=== PATIENT | female | born 1970 ===

== ENCOUNTER 2018-09-19 17:22 | Observation (INO) | payer MEDICAID ==
[2018-09-19] MEDS ORDERED: Sodium Chloride 0.9% 1,000 ML IV ONE (19:59)
[2018-09-19] MEDS ORDERED: Sodium Chloride 0.9% 1,000 ML ONE (20:10)
[2018-09-19 20:23] LABS: BASO % 0.2 % (0.0-2.0); EOS # 0.1 K/uL (0.0-0.7); EOS % 0.6 % (0.0-4.0); HEMOGLOBIN 10.1 g/dL (11.0-16.0); LYMPH # 1.7 K/uL (1.0-4.3); LYMPH % 11.7 % (20.0-40.0); MEAN CELL VOLUME 75.2 fL (81.0-99.0); MEAN CORPUSCULAR HGB CONC 31.9 g/dL (33.0-37.0); MEAN PLATELET VOLUME 8.5 fL (7.2-11.7); MONO # 0.4 K/uL (0.0-0.8); MONO % 2.6 % (0.0-10.0); NEUT # 12.3 K/uL (1.8-7.0); NEUT % 84.9 % (50.0-75.0); RBC 4.19 Mil/uL (3.80-5.20); RED CELL DISTRIBUTION WIDTH 17.6 % (11.5-14.5); WHITE BLOOD COUNT 14.4 K/uL (4.8-10.8)
[2018-09-19 20:27] LABS: SQUAMOUS EPITHIAL 8 /hpf (0-5); URINE BACTERIA RARE (<OCC); URINE BILIRUBIN NEGATIVE (NEGATIVE); URINE BLOOD 3+ (NEGATIVE); URINE CLARITY Hazy (Clear); URINE COLOR Yellow (YELLOW); URINE GLUCOSE (UA) NORMAL (Normal); URINE LEUKOCYTE ESTERASE NEG Leu/uL (Negative); URINE PROTEIN 1+ mg/dL (NEGATIVE); URINE UROBILINOGEN NORMAL mg/dL (0.2-1.0)
[2018-09-19 20:29] LABS: HCG,QUALITATIVE URINE NEGATIVE (NEGATIVE)
[2018-09-19 20:34] LABS: ALB/GLOB RATIO 1.3 (1.0-2.1); ALBUMIN 4.3 g/dL (3.5-5.0); ALT/SGPT 18 U/L (9-52); AST/SGOT 20 U/L (14-36); BLOOD UREA NITROGEN 9 mg/dL (7-17); CALCIUM 8.8 mg/dl (8.6-10.4); GFR NON-AFRICAN AMERICAN > 60; LIPASE 94 U/L (23-300)
[2018-09-19 20:42] LABS: B-TYPE NATRIURETIC PEPTIDE 54.5 pg/mL (0-450)
[2018-09-19] MEDS ORDERED: Iodixanol 320 MG/ML 100 ML BOTTLE IV ONE (21:13)
--- NOTE | 2018-09-19 21:33 | C.PDOC ---
History Of Present Illness 48-year-old female presents to the ED for evaluation of left-sided abdominal pain which began two days ago. Patient describes her pain as dull, aching and boring. Patient denies fever, chills, history of diverticulitis or renal colic. Time Seen by Provider: 09/19/18 19:50 Chief Complaint (Nursing): Abdominal Pain History Per: Patient History/Exam Limitations: no limitations Onset/Duration Of Symptoms: Hrs Current Symptoms Are (Timing): Still Present Location Of Pain/Discomfort: Other (left-sided) Quality Of Discomfort: Dull, Aching, "Pain" Associated Symptoms: denies: Fever, Chills Additional History Per: Patient Abnormal Vaginal Bleeding: No Past Medical History Reviewed: Historical Data, Nursing Documentation, Vital Signs Vital Signs: Last Vital Signs Temp 97.8 F 09/19/18 19:08 Pulse 78 09/19/18 19:08 Resp 19 09/19/18 19:08 BP 140/91 H 09/19/18 19:08 Pulse Ox 100 09/19/18 19:08 Primary Care Provider: FAMILY PROVIDER,NO - Medical History PMH: No Chronic Diseases Surgical History: No Surg Hx Family History: States: Unknown Family Hx - Social History Hx Alcohol Use: No Hx Substance Use: No - Immunization History Hx Tetanus Toxoid Vaccination: No Hx Influenza Vaccination: No Hx Pneumococcal Vaccination: No Review Of Systems Constitutional: Negative for: Fever, Chills Gastrointestinal: Positive for: Abdominal Pain (left-sided ) Physical Exam - Physical Exam Appears: Non-toxic, No Acute Distress, Other (obese female, appears older than stated age ) Skin: Normal Color, Warm, Dry Head: Atraumatic, Normacephalic Oral Mucosa: Moist Neck: Supple Chest: Symmetrical, No Deformity, No Tenderness Cardiovascular: Rhythm Regular, No Murmur Respiratory: Normal Breath Sounds, No Rales, No Rhonchi, No Wheezing Gastrointestinal/Abdominal: Soft, Tenderness (left lateral abdomen ), No Guarding, No Rebound Back: No CVA Tenderness Extremity: Normal ROM, Capillary Refill (less than 2 seconds ) Neurological/Psych: Normal Speech, Normal Cognition ED Course And Treatment - Laboratory Results Result Diagrams: 09/19/18 20:15 09/19/18 20:15 Lab Results: Troponin I < 0.0120 ng/mL (0.00-0.120) 09/19/18 20:15 NT-Pro-B Natriuret Pep 54.5 pg/mL (0-450) 09/19/18 20:15 Total Bilirubin 0.2 mg/dL (0.2-1.3) 09/19/18 20:15 AST 20 U/L (14-36) 09/19/18 20:15 ALT 18 U/L (9-52) 09/19/18 20:15 Alkaline Phosphatase 86 U/L (38-126) 09/19/18 20:15 Total Protein 7.7 g/dL (6.3-8.3) 09/19/18 20:15 Albumin 4.3 g/dL (3.5-5.0) 09/19/18 20:15 Globulin 3.4 gm/dL (2.2-3.9) 09/19/18 20:15 Albumin/Globulin Ratio 1.3 (1.0-2.1) 09/19/18 20:15 Lipase 94 U/L (23-300) 09/19/18 20:15 Urine Color Yellow (YELLOW) 09/19/18 20:15 Urine Clarity Hazy (Clear) 09/19/18 20:15 Urine pH 5.0 (5.0-8.0) 09/19/18 20:15 Ur Specific [place] 1.020 (1.003-1.030) 09/19/18 20:15 Urine Protein 1+ mg/dL (NEGATIVE) H 09/19/18 20:15 Urine Glucose (UA) Normal mg/dL (Normal) 09/19/18 20:15 Urine Ketones Trace mg/dL (NEGATIVE) 09/19/18 20:15 Urine Blood 3+ (NEGATIVE) H 09/19/18 20:15 Urine Nitrate Negative (NEGATIVE) 09/19/18 20:15 Urine Bilirubin Negative (NEGATIVE) 09/19/18 20:15 Urine Urobilinogen Normal mg/dL (0.2-1.0) 09/19/18 20:15 Ur Leukocyte Esterase Neg Siri/uL (Negative) 09/19/18 20:15 Urine WBC (Auto) 2 /hpf (0-5) 09/19/18 20:15 Urine RBC (Auto) 10 /hpf (0-3) H 09/19/18 20:15 Ur Squamous Epith Cells 8 /hpf (0-5) H 09/19/18 20:15 Urine Bacteria Rare (<OCC) 09/19/18 20:15 Urine HCG, Qual Negative (NEGATIVE) 09/19/18 20:15 Urine HCG, Qual Negative (NEGATIVE) 09/19/18 20:15 Lab Interpretation: Abnormal (LFT's wnl) O2 Sat by Pulse Oximetry: 100 (on RA) Pulse Ox Interpretation: Normal - Radiology CXR: Interpreted by Me CXR Interpretation: Yes: No Acute Disease - Other Rad abd x 2 X-Ray: Interpreted by Me (+FOS) Progress Note: Bloodwork, urinalysis, CT A/P, Obstructive Series XR ordered. Toradol IVP and IV Fluids given. Reevaluation Time: 23:29 Reassessment Condition: Improved - Physician Consult Information Outcome Of Conversation: [id number]: d/w Dr Terry Parsons, Hospitalist- ok to admi. 2330: d/w Dr. Tineo- Surgery Garden Worker- ok to Consult, NPO @ 12MN, plan for Surgery in AM Medical Decision Making Medical Decision Making: L abd pain x 2 days large GB stone with thickening and leukocytosis 14K concering for cholecystitis Zosyn, IVF, pain meds Dr. Tineo to Consult adm to Hospitalists Disposition Doctor Will See Patient In The: Hospital Counseled Patient/Family Regarding: Studies Performed, Diagnosis - Disposition Disposition: HOSPITALIZED Disposition Time: 23:31 Condition: GOOD Forms: [facility] (French) - Clinical Impression Clinical Impression: Abdominal pain - PA / OPERATING ENGINEER / Resident Statement MD/DO has reviewed & agrees with the documentation as recorded. - Scribe Statement The provider has reviewed the documentation as recorded by the Scribe (Giovanna Gaxiola) Provider Attestation: All medical record entries made by the Scribe were at my direction and person ally dictated by me. I have reviewed the chart and agree that the record accurately reflects my personal performance of the history, physical exam, medical decision making, and the department course for this patient. I have also personally directed, reviewed, and agree with the discharge instructions and disposition.
[2018-09-19] MEDS ORDERED: Piperacillin/Tazobact 3.375 gm 100 ML IV STA (22:17)
[2018-09-19] MEDS ORDERED: Piperacillin/Tazobact 3.375 gm 100 ML IVPB ONE (22:43)
--- NOTE | 2018-09-20 04:15 | CP.PCM.HP ---
<Madeline Field - Last Filed: 09/20/18 04:58> History of Present Illness - History of Present Illness History of Present Illness: cc: abdominal/back pain Patient is a 48 year old female w/ pmhx of HLD who presents to ED today with complaints of abdominal pain. Patient reports left sided back pain since Tuesday, and today new onset left flank and LUQ abdominal pain, worse post- prandial. Patient reports similar symptoms 1 month ago which resolved after several hours, however today pain was only temporarily relieved with motrin and overall, more severe in intensity. Patient reports 3 episodes of vomiting, food particles while in ED. Denies fevers, chills, chest pain, SOB, diarrhea, cons tipation, hematochezia, dysuria, recent travel, sick contacts. No hx of EGD/colonoscopy or GI disease. pmhx: HLD pshx: w/ tubal ligation meds: denies allergies: NKDA sochx: denies Present on Admission - Present on Admission Any Indicators Present on Admission: No Review of Systems - Constitutional Constitutional: absent: Chills, Fever - EENT Nose/Mouth/Throat: absent: Nasal Congestion - Cardiovascular Cardiovascular: absent: Chest Pain, Edema, Palpitations - Respiratory Respiratory: absent: Cough, Dyspnea - Gastrointestinal Gastrointestinal: Abdominal Pain (LUQ), Nausea, Vomiting. absent: Coffee Ground Emesis, Constipation, Diarrhea, Hematochezia - Genitourinary Genitourinary: absent: Dysuria, Urinary Frequency - Musculoskeletal Musculoskeletal: Back Pain Past Patient History - Infectious Disease Hx of Infectious Diseases: None - Past Social History Smoking Status: Never Smoked - PSYCHIATRIC Hx Substance Use: No - SURGICAL HISTORY Hx Surgeries: Yes Hx Section: Yes (x1) - ANESTHESIA Hx Anesthesia: Yes Hx Anesthesia Reactions: No Hx Malignant Hyperthermia: No Meds Allergies/Adverse Reactions: Allergies Allergy/AdvReac Type Severity Reaction Status Date / Time No Known Allergies Allergy Verified 09/19/18 17:29 Physical Exam - Constitutional Appears: Non-toxic, No Acute Distress - Head Exam Head Exam: ATRAUMATIC, NORMAL INSPECTION, NORMOCEPHALIC - Eye Exam Eye Exam: EOMI, Normal appearance Pupil Exam: NORMAL ACCOMODATION - ENT Exam ENT Exam: Mucous Membranes Moist, Normal Exam - Neck Exam Neck exam: Positive for: Normal Inspection - Respiratory Exam Respiratory Exam: Clear to Auscultation Bilateral, NORMAL BREATHING PATTERN - Cardiovascular Exam Cardiovascular Exam: REGULAR RHYTHM, +S1, +S2 - GI/Abdominal Exam GI & Abdominal Exam: Normal Bowel Sounds, Soft, Tenderness (LUQ). absent: Distended, Guarding, Rebound - Extremities Exam Extremities exam: Positive for: normal inspection. Negative for: calf tenderness, pedal edema - Back Exam Back exam: NORMAL INSPECTION. absent: CVA tenderness (L), CVA tenderness (R) - Neurological Exam Neurological exam: Alert, Oriented x3 - Psychiatric Exam Psychiatric exam: Normal Affect, Normal Mood - Skin Skin Exam: Dry, Intact, Normal Color, Warm Results - Vital Signs Recent Vital Signs: Last Vital Signs Temp 98.8 F 09/19/18 22:59 Pulse 77 09/19/18 22:59 Resp 18 09/19/18 22:59 BP 132/84 09/19/18 22:59 Pulse Ox 100 09/19/18 23:31 - Labs Result Diagrams: 09/19/18 20:15 09/19/18 20:15 Labs: Laboratory Results - last 24 hr 09/19/18 09/19/18 09/19/18 20:15 20:15 20:15 WBC 14.4 H RBC 4.19 Hgb 10.1 L Hct 31.5 L MCV 75.2 L MCH 24.0 L MCHC 31.9 L RDW 17.6 H Plt Count 322 MPV 8.5 Neut % (Auto) 84.9 H Lymph % (Auto) 11.7 L [place] % (Auto) 2.6 Eos % (Auto) 0.6 Baso % (Auto) 0.2 Neut # (Auto) 12.3 H Lymph # (Auto) 1.7 [place] # (Auto) 0.4 Eos # (Auto) 0.1 Baso # (Auto) 0.0 Sodium 138 Potassium 4.7 Chloride 102 Carbon Dioxide 25 Anion Gap 15 BUN 9 Creatinine 0.5 L Est GFR ( Amer) > 60 Est GFR (Non-Af Amer) > 60 Random Glucose 138 H Calcium 8.8 Total Bilirubin 0.2 AST 20 ALT 18 Alkaline Phosphatase 86 Troponin I < 0.0120 NT-Pro-B Natriuret Pep 54.5 Total Protein 7.7 Albumin 4.3 Globulin 3.4 Albumin/Globulin Ratio 1.3 Lipase 94 Urine Color Yellow Urine Clarity Hazy Urine pH 5.0 Ur Specific [place] 1.020 Urine Protein 1+ H Urine Glucose (UA) Normal Urine Ketones Trace Urine Blood 3+ H Urine Nitrate Negative Urine Bilirubin Negative Urine Urobilinogen Normal Ur Leukocyte Esterase Neg Urine WBC (Auto) 2 Urine RBC (Auto) 10 H Ur Squamous Epith Cells 8 H Urine Bacteria Rare Urine HCG, Qual Negative Assessment & Plan - Assessment and Plan (Free Text) Assessment: 48 year old female admitted for evaluation of abdominal pain Plan: Abdominal Pain Imaging: large solitary 4.6 x 3.0 cm cholelith is seen in the gallbladder lumen. Mild gallbladder wall thickening. 4.7 x 5.3 cm left ovarian cyst. -likely 2/2 cholelithiasis -leukopenic @ 14.4 with left shift -abdominal US ordered -NPO -IVF, LR @125 -IV Abx: zosyn -pain medication prn, toradol -antiemetics prn, zofran -sx consult, Dr. Tineo -pre-op coags, EKG, CXR ordered Hematuria -UA: 3+ blood, 10 RBC -f/u renal US Anemia -hgb 10.1, baseline unknown Ppx VTE: SCD; AC contraindicated 2/2 anemia GI: pepcid Discussed with Dr. Parsons -Madeline Field, PGY-1 <Jocelyn Parsons - Last Filed: 09/21/18 05:17> Results - Vital Signs Recent Vital Signs: Last Vital Signs Temp 98.2 F 09/21/18 00:01 Pulse 69 09/21/18 00:01 Resp 20 09/21/18 00:01 BP 101/65 09/21/18 00:01 Pulse Ox 97 09/21/18 00:01 - Labs Result Diagrams: 09/20/18 08:14 09/20/18 08:14 Labs: Laboratory Results - last 24 hr 09/20/18 09/20/18 09/20/18 06:41 08:14 08:14 WBC RBC Hgb Hct MCV MCH MCHC RDW Plt Count MPV Neut % (Auto) Lymph % (Auto) [place] % (Auto) Eos % (Auto) Baso % (Auto) Neut # (Auto) Lymph # (Auto) [place] # (Auto) Eos # (Auto) Baso # (Auto) Retic Count PT INR APTT Sodium 140 Potassium 3.7 Chloride 102 Carbon Dioxide 30 Anion Gap 12 BUN 7 Creatinine 0.5 L Est GFR ( Amer) > 60 Est GFR (Non-Af Amer) > 60 Random Glucose 88 D Calcium 8.3 L Phosphorus 3.4 Magnesium 1.9 Iron 25 L TIBC 460 H % Saturation 5 L Ferritin 4.3 Total Bilirubin 0.4 AST 19 ALT 16 Alkaline Phosphatase 76 Total Protein 7.0 Albumin 3.9 Globulin 3.1 Albumin/Globulin Ratio 1.2 Urine Color Yellow Urine Clarity Clear Urine pH 6.0 Ur Specific [place] 1.031 H Urine Protein Negative Urine Glucose (UA) Normal Urine Ketones Trace Urine Blood Negative Urine Nitrate Negative Urine Bilirubin Negative Urine Urobilinogen Normal Ur Leukocyte Esterase Neg Urine WBC (Auto) < 1 Urine RBC (Auto) < 1 Ur Squamous Epith Cells 1 09/20/18 09/20/18 08:14 08:14 WBC 9.2 RBC 3.93 Hgb 9.8 L Hct 29.9 L MCV 75.9 L MCH 24.8 L MCHC 32.7 L RDW 17.2 H Plt Count 315 MPV 8.6 Neut % (Auto) 60.9 Lymph % (Auto) 30.2 [place] % (Auto) 6.6 Eos % (Auto) 1.8 Baso % (Auto) 0.5 Neut # (Auto) 5.6 Lymph # (Auto) 2.8 [place] # (Auto) 0.6 Eos # (Auto) 0.2 Baso # (Auto) 0.0 Retic Count 1.6 H PT 12.0 INR 1.1 APTT 27.0 Sodium Potassium Chloride Carbon Dioxide Anion Gap BUN Creatinine Est GFR ( Amer) Est GFR (Non-Af Amer) Random Glucose Calcium Phosphorus Magnesium Iron TIBC % Saturation Ferritin Total Bilirubin AST ALT Alkaline Phosphatase Total Protein Albumin Globulin Albumin/Globulin Ratio Urine Color Urine Clarity Urine pH Ur Specific [place] Urine Protein Urine Glucose (UA) Urine Ketones Urine Blood Urine Nitrate Urine Bilirubin Urine Urobilinogen Ur Leukocyte Esterase Urine WBC (Auto) Urine RBC (Auto) Ur Squamous Epith Cells Attending/Attestation - Attestation I have fully participated in the care of the patient.: Yes I have reviewed all pertinent clinical information: Yes Notes (Text): 09/21/18 05:16 pt was personally seen and manaeged with resident by me.
[2018-09-20] MEDS: Lactated Ringer's 1,000 ML IV SCH ×3 (04:45→20:39)
[2018-09-20] MEDS: Piperacill/Tazo 3.375gm in Dex 3.375 GM/50 ML BAG IVPB SCH ×4 (04:46→22:45)
[2018-09-20 06:48] LABS: SQUAMOUS EPITHIAL 1 /hpf (0-5); URINE BILIRUBIN NEGATIVE (NEGATIVE); URINE BLOOD NEGATIVE (NEGATIVE); URINE CLARITY Clear (Clear); URINE COLOR Yellow (YELLOW); URINE GLUCOSE (UA) NORMAL (Normal); URINE LEUKOCYTE ESTERASE NEG Leu/uL (Negative); URINE PROTEIN NEGATIVE (NEGATIVE); URINE UROBILINOGEN NORMAL mg/dL (0.2-1.0)
[2018-09-20 08:25] LABS: BASO % 0.5 % (0.0-2.0); EOS # 0.2 K/uL (0.0-0.7); EOS % 1.8 % (0.0-4.0); HEMOGLOBIN 9.8 g/dL (11.0-16.0); LYMPH # 2.8 K/uL (1.0-4.3); LYMPH % 30.2 % (20.0-40.0); MEAN CELL VOLUME 75.9 fL (81.0-99.0); MEAN CORPUSCULAR HEMOGLOBIN 24.8 pg (27.0-31.0); MEAN CORPUSCULAR HGB CONC 32.7 g/dL (33.0-37.0); MEAN PLATELET VOLUME 8.6 fL (7.2-11.7); MONO # 0.6 K/uL (0.0-0.8); MONO % 6.6 % (0.0-10.0); NEUT # 5.6 K/uL (1.8-7.0); NEUT % 60.9 % (50.0-75.0); NRBC % 0.1 % (0.0-2.0); RBC 3.93 Mil/uL (3.80-5.20); RED CELL DISTRIBUTION WIDTH 17.2 % (11.5-14.5); WHITE BLOOD COUNT 9.2 K/uL (4.8-10.8)
[2018-09-20 08:29] LABS: INR 1.1
[2018-09-20 08:34] LABS: IRON 25 ug/dL (37-170)
[2018-09-20 08:38] LABS: ALB/GLOB RATIO 1.2 (1.0-2.1); ALBUMIN 3.9 g/dL (3.5-5.0); ALT/SGPT 16 U/L (9-52); AST/SGOT 19 U/L (14-36); BLOOD UREA NITROGEN 7 mg/dL (7-17); CALCIUM 8.3 mg/dl (8.6-10.4); GFR NON-AFRICAN AMERICAN > 60
[2018-09-20 08:50] LABS: % IRON SATURATION 5 (20-55); TOTAL IRON BINDING CAPACITY 460 ug/dL (250-450)
--- NOTE | 2018-09-20 08:59 | RAD ---
Chest x-ray two views HISTORY: Fever. Comparison: None available. Findings: No focal infiltrate or effusion. Heart size within normal limits. Degenerative changes in the spine. Impression: No focal infiltrate or effusion.
[2018-09-20 09:16] LABS: FERRITIN 4.3 ng/mL
--- NOTE | 2018-09-20 09:27 | US ---
Abdominal ultrasound HISTORY: Abdominal pain. COMPARISON: None available. TECHNIQUE: Real-time sonography was performed through the abdomen. FINDINGS: Liver: Prominent measuring 18.5 centimeters in length. Normal echogenicity. Gallbladder: Cholelithiasis with a markedly enlarged calculus within the gallbladder measuring up to 5.1 centimeters. Normal gallbladder wall thickness of 1.6 millimeters. No gross wall edema. Negative sonographic Schaeffer's sign. Common bile duct measures 5.5 millimeters, mildly prominent. Limited visualization of pancreas. Spleen measures 9.2 centimeters in length, within normal limits. Visualized aorta and IVC are preserved. Right kidney: 12.9 x 4.1 x 4.0 centimeters. No calculi or hydronephrosis. Left Kidney: 12.3 x 4.7 x 4.4 centimeters. No calculi or hydronephrosis. Incidentally noted is a partially distended urinary bladder which limits evaluation. Impression: 1. Hepatomegaly with liver measuring up to 18.5 centimeters in length. 2. Cholelithiasis with prominent gallbladder calculus measuring up to 5.1 centimeters. Normal gallbladder wall thickness of 1.6 millimeters. No gross wall edema. Negative sonographic Schaeffer's sign. 3. Limited visualization of the pancreas. 4. Mild prominence of the common bile duct measuring up to 5.5 millimeters.
--- NOTE | 2018-09-20 10:26 | CT ---
Date of service: 09/19/2018 PROCEDURE: CT Abdomen and Pelvis with contrast HISTORY: L abd pain x 4 days COMPARISON: Limited abdomen/renal ultrasound performed 09/20/18 TECHNIQUE: Contrast dose: 100 mL Visipaque 320 IV Radiation dose: Total exam DLP = 1133.66 mGy-cm. This CT exam was performed using one or more of the following dose reduction techniques: Automated exposure control, adjustment of the mA and/or kV according to patient size, and/or use of iterative reconstruction technique. FINDINGS: LOWER THORAX: Minimal basilar atelectasis. No visible pleural effusion or pneumothorax. Small hiatal hernia/distal esophageal wall thickening. LIVER: Unremarkable. GALLBLADDER AND BILE DUCTS: Mild gallbladder wall thickening. Cholelithiasis. Cysts PANCREAS: Unremarkable. SPLEEN: Unremarkable. ADRENALS: Unremarkable. KIDNEYS AND URETERS: The kidneys enhance symmetrically. No hydronephrosis or obstructing calculus identified. Too small to characterize 8 mm left renal hypodensity. VASCULATURE: No aortic aneurysm. No atherosclerotic calcification or mural plaque present. BOWEL: Stomach is nondistended. Lack of oral contrast limits evaluation for bowel pathology. Bowel loops appear within normal limits of caliber without evidence of obstruction. APPENDIX: The appendix appears within normal limits of caliber. No secondary signs of acute appendicitis. PERITONEUM: No significant free fluid. No definite free air. LYMPH NODES: No bulky adenopathy identified. BLADDER: Unremarkable. REPRODUCTIVE: Uterus is present. Large left adnexal cystic structure possibly with adjacent smaller cyst or septation measuring approximately 4.4 x 5.1 cm, likely left ovarian cyst. Probable 1.6 cm right ovarian cyst. BONES: Mild degenerative changes. OTHER FINDINGS: None. IMPRESSION: Cholelithiasis. Mild gallbladder wall thickening. Large left adnexal cystic structure possibly with adjacent smaller cyst or septation measuring approximately 4.4 x 5.1 cm, likely left ovarian cyst. Probable 1.6 cm right ovarian cyst. Suggest further evaluation with pelvic ultrasound. Additional findings as above. Preliminary impression was provided by [employer]
--- NOTE | 2018-09-20 10:47 | RAD ---
Date of service: There is enough to low may be 09/19/2018 PROCEDURE: Radiographs of the chest and abdomen (obstructive series) HISTORY: abd pain COMPARISON: No prior. TECHNIQUE: AP radiograph of the chest, with upright and supine radiographs of the abdomen. 3 views obtained. FINDINGS: CHEST: Lungs: Clear. Cardiovascular: Normal size heart. No pulmonary vascular congestion. No aortic atherosclerotic calcification present Pleura: No pleural fluid. No pneumothorax. Other findings: None. ABDOMEN AND PELVIS: Bowel: There is moderate amount of stool in the colon. The bowel gas pattern is nonspecific. No evidence of mechanical obstruction. Free air: None. Bones: Unremarkable. Other findings: None. IMPRESSION: Constipation. Nonobstructive nonspecific bowel gas pattern. Clear lungs.
--- NOTE | 2018-09-20 15:03 | CP.PCM.PN ---
Subjective - Date & Time of Evaluation Date of Evaluation: 09/20/18 Time of Evaluation: 15:07 - Subjective Subjective: PGY-[address] Wagner Patient seen and examined at bedside pre-op. No acute events overnight. Pt continues to have LUQ pain, worse with food. Patient also states having heavy periods, and her menstrual cycle ended yesterday. Denies vomiting, diarrhea, headache, dizziness, chest pain. Objective - Vital Signs/Intake and Output Vital Signs (last 24 hours): Temp Pulse Resp BP Pulse Ox 97.6 F 63 20 114/78 98 09/20/18 07:00 09/20/18 07:00 09/20/18 07:00 09/20/18 07:00 09/20/18 07:00 Intake and Output: 09/20/18 09/20/18 06:59 18:59 Intake Total 375 Balance 375 - Medications Medications: Current Medications Ascorbic Acid (Vitamin C 250 Mg Tab) 250 mg PO DAILY [facility] Famotidine (Pepcid) 20 mg IVP DAILY [facility] Last Admin: 09/20/18 10:44 Dose: 20 mg Ferric Sodium Gluconate Complex (Ferrlecit) 125 mg IVPB DAILY [facility] Stop: 09/29/18 10:01 Ferric Sodium Gluconate Complex (Ferrlecit) 125 mg IVPB ONCE ONE Stop: 09/21/18 12:46 Lactated Ringer's (Lactated Ringer's) 1,000 mls @ 125 mls/hr IV .Q8H [facility] Last Admin: 09/20/18 12:40 Dose: Not Given Piperacillin Sod/Tazobactam Sod (Zosyn 3.375 Gm Iv Premix) 3.375 gm in 50 mls @ 100 mls/hr IVPB Q6H [facility]; Protocol Last Admin: 09/20/18 10:44 Dose: 100 mls/hr Ketorolac Tromethamine (Toradol) 30 mg IVP Q6 PRN PRN Reason: Pain, moderate (4-7) Ondansetron HCl (Zofran Inj) 4 mg IVP Q6 PRN PRN Reason: Nausea/Vomiting Pneumococcal Polyvalent Vaccine (Pneumovax 23 Vaccine) 0.5 ml IM .ONCE ONE Stop: 09/22/18 10:01 - Labs Labs: 09/20/18 08:14 05/08/19 08:14 PT 12.0 SECONDS (9.7-12.2) 09/20/18 08:14 INR 1.1 09/20/18 08:14 APTT 27.0 SECONDS (21-34) 09/20/18 08:14 - Constitutional Appears: Non-toxic, No Acute Distress - Head Exam Head Exam: ATRAUMATIC, NORMOCEPHALIC - Eye Exam Eye Exam: EOMI, Normal appearance - ENT Exam ENT Exam: Mucous Membranes Moist - Respiratory Exam Respiratory Exam: Clear to Ausculation Bilateral, NORMAL BREATHING PATTERN. absent: Rhonchi, Wheezes - Cardiovascular Exam Cardiovascular Exam: REGULAR RHYTHM, +S1, +S2 - GI/Abdominal Exam GI & Abdominal Exam: Soft, Tenderness (LUQ tenderness) Additional comments: Neg Mcmurpheys, no McBurney's pt tenderness, no rebound - Extremities Exam Extremities Exam: absent: Pedal Edema, Tenderness - Neurological Exam Neurological Exam: Alert, Awake, Oriented x3 - Skin Skin Exam: Dry, Intact Assessment and Plan - Assessment and Plan (Free Text) Assessment: 48 year old female admitted for evaluation of abdominal pain Plan: Abdominal Pain - LLQ pain with Colic Imaging: CT a/p 09/19: large solitary 4.6 x 3.0 cm cholelith is seen in the gallbladder lumen. Mild gallbladder wall thickening. 4.7 x 5.3 cm left ovarian cyst. abdominal US 09/20: 1. Hepatomegaly with liver measuring up to 18.5 centimeters in length. 2. Chol elithiasis with prominent gallbladder calculus measuring up to 5.1 centimeters. Normal gallbladder wall thickness of 1.6 millimeters. No gross wall edema. Negative sonographic Schaeffer's sign. 3. Limited visualization of the pancreas. 4. Mild prominence of the common bile duct measuring up to 5.5 millimeters. -likely 2/2 symptomatic cholelithiasis -leukopenic @ 14.4 with left shift -NPO prior to surgery -IVF, LR @125 -IV Abx: zosyn -pain medication prn, toradol -antiemetics prn, zofran -sx consult, Dr. Tineo - f/u post-op -pre-op coags, EKG, CXR ordered Hematuria -UA: 3+ blood, 10 RBC -f/u renal US -Note patient states she gets heavy periods and is iron deficient, and had last day of her period on admission Irong Deficiency Anemia, Chronic -Hgb 10.1 on admission -Microcytic; Iron studes: low FE, increased TIBC, low ferritin -Reticulocyte Index 0.76 - Hypoproliferation Meds -IV Ferrlicit daily with PO vit C for absorption Ppx VTE: SCD; AC contraindicated 2/2 anemia GI: pepcid Assessment and Plan Discussed with Dr. Kristy Leiva, PGY-1
[2018-09-20] MEDS ORDERED: Midazolam 2 MG/2 ML VIAL ONE (15:09)
[2018-09-20] MEDS ORDERED: Propofol 10 mg/ml Inj (20 ML) ONE (15:10)
[2018-09-20] MEDS ORDERED: ePHEDrine 50 mg/ml Inj ONE (15:54)
[2018-09-20] MEDS ORDERED: Oxycodone/Acetaminophen 5/325 mg Tab PO PRN (16:17)
[2018-09-20] MEDS: HYDROmorphone 0.5 mg/0.5 ml ISec IVP PRN ×3 (16:40→17:15)
[2018-09-20 18:16] VITALS: RESP 20
[2018-09-21] MEDS: Piperacill/Tazo 3.375gm in Dex 3.375 GM/50 ML BAG IVPB SCH ×2 (04:24→12:09)
[2018-09-21] MEDS: Lactated Ringer's 1,000 ML IV SCH ×2 (04:26→12:15)
--- NOTE | 2018-09-21 06:33 | OP ---
PROCEDURE DATE: 09/20/2018 PREOPERATIVE DIAGNOSIS: Acute and chronic cholecystitis. POSTOPERATIVE DIAGNOSIS: Acute and chronic cholecystitis. PROCEDURE PERFORMED: Laparoscopic cholecystectomy. SURGEON: Lee Tineo MD NITROCELLULOSE OPERATOR: Hans Yang MD ANESTHESIA: General. ESTIMATED BLOOD LOSS: 40 mL. POSTOPERATIVE CONDITION: Stable. INDICATIONS FOR SURGERY: This is a 48-year-old female with history of right upper quadrant pain, nausea, and vomiting, admitted to the hospital with severe biliary colic and gallstones, now taken to the operating room for laparoscopic cholecystectomy. GROSS FINDINGS: The gallbladder contained several stones, especially a large stone near the fundus. There was minimal inflammation. The anatomy of Calot's triangle was clearly identified prior to clipping the cystic duct. DESCRIPTION OF PROCEDURE: The patient was taken to the operating room. General anesthesia was administered. The abdomen was prepped and draped. A paraumbilical cutdown was performed. A blunt port was inserted into the abdomen. The abdomen was insufflated with CO2. Under direct vision, the remaining ports were placed. The gallbladder was grasped and retracted. The cystic duct was carefully dissected free. The gallbladder, cystic duct, and common duct junction were clearly identified. The cystic duct was then clipped and divided. The cystic artery was then dissected free, clearly identified, clipped, and divided. The gallbladder was removed from the bed using the Bovie and bleeding in the bed was controlled using Bovie. The abdomen was irrigated with saline until clear. The gallbladder was removed through the epigastric port. The incision had to be widened somewhat. The fascial defects were closed with heavy Vicryl and the skin was closed with skin muna. The patient tolerated the procedure well and returned to the recovery room in stable condition. Lee Tineo MD
--- NOTE | 2018-09-21 07:06 | CP.PCM.PN ---
Subjective - Date & Time of Evaluation Date of Evaluation: 09/21/18 Time of Evaluation: 07:05 - Subjective Subjective: Progress Note for Hospitalist service Objective - Vital Signs/Intake and Output Vital Signs (last 24 hours): Temp Pulse Resp BP Pulse Ox 98.2 F 69 20 101/65 97 09/21/18 00:01 09/21/18 00:01 09/21/18 00:01 09/21/18 00:01 09/21/18 00:01 Intake and Output: 09/21/18 09/21/18 06:59 18:59 Intake Total 1745 Balance 1745 - Medications Medications: Current Medications Ascorbic Acid (Vitamin C 250 Mg Tab) 250 mg PO DAILY [facility] Famotidine (Pepcid) 20 mg IVP DAILY [facility] Last Admin: 09/20/18 10:44 Dose: 20 mg Ferric Sodium Gluconate Complex (Ferrlecit) 125 mg IVPB DAILY [facility] Stop: 09/29/18 10:01 Ferric Sodium Gluconate Complex (Ferrlecit) 125 mg IVPB ONCE ONE Stop: 09/21/18 12:46 Lactated Ringer's (Lactated Ringer's) 1,000 mls @ 125 mls/hr IV .Q8H [facility] Last Admin: 09/21/18 04:26 Dose: 125 mls/hr Piperacillin Sod/Tazobactam Sod (Zosyn 3.375 Gm Iv Premix) 3.375 gm in 50 mls @ 100 mls/hr IVPB Q6H [facility]; Protocol Last Admin: 09/21/18 04:24 Dose: 100 mls/hr Ketorolac Tromethamine (Toradol) 30 mg IVP Q6 PRN PRN Reason: Pain, moderate (4-7) Last Admin: 09/21/18 04:33 Dose: 30 mg Ondansetron HCl (Zofran Inj) 4 mg IVP Q6 PRN PRN Reason: Nausea/Vomiting Oxycodone/Acetaminophen (Percocet 5/325 Mg Tab) 2 tab PO Q4H PRN PRN Reason: Pain Stop: 09/23/18 16:18 Pneumococcal Polyvalent Vaccine (Pneumovax 23 Vaccine) 0.5 ml IM .ONCE ONE Stop: 09/22/18 10:01 - Labs Labs: 09/20/18 08:14 09/20/18 08:14 PT 12.0 SECONDS (9.7-12.2) 09/20/18 08:14 INR 1.1 09/20/18 08:14 APTT 27.0 SECONDS (21-34) 09/20/18 08:14
[2018-09-21 07:31] LABS: BASO % 0.4 % (0.0-2.0); EOS # 0.1 K/uL (0.0-0.7); EOS % 1.1 % (0.0-4.0); HEMOGLOBIN 9.5 g/dL (11.0-16.0); LYMPH # 2.9 K/uL (1.0-4.3); LYMPH % 26.1 % (20.0-40.0); MEAN CELL VOLUME 76.1 fL (81.0-99.0); MEAN CORPUSCULAR HEMOGLOBIN 24.6 pg (27.0-31.0); MEAN CORPUSCULAR HGB CONC 32.3 g/dL (33.0-37.0); MEAN PLATELET VOLUME 8.8 fL (7.2-11.7); MONO # 0.6 K/uL (0.0-0.8); MONO % 5.1 % (0.0-10.0); NEUT # 7.4 K/uL (1.8-7.0); NEUT % 67.3 % (50.0-75.0); RBC 3.87 Mil/uL (3.80-5.20); RED CELL DISTRIBUTION WIDTH 17.3 % (11.5-14.5); WHITE BLOOD COUNT 11.1 K/uL (4.8-10.8)
[2018-09-21 07:45] VITALS: BP 115/64; PULSE 64; TEMP 98; O2SAT 96
[2018-09-21 08:15] LABS: ALB/GLOB RATIO 1.3 (1.0-2.1); ALBUMIN 3.8 g/dL (3.5-5.0); ALT/SGPT 58 U/L (9-52); AST/SGOT 84 U/L (14-36); BLOOD UREA NITROGEN 6 mg/dL (7-17); CALCIUM 8.6 mg/dl (8.6-10.4); GFR NON-AFRICAN AMERICAN > 60
[2018-09-21] MEDS ORDERED: Ferric Sodium Gluconat Complex 62.5 mg/5 ml Vial IVPB SCH (10:00)
[2018-09-21] MEDS ORDERED: Pneumococcal 23-Valent Vaccine IM ONE (12:00)
[2018-09-21] MEDS ORDERED: Ferric Sodium Gluconat Complex 62.5 mg/5 ml Vial IVPB ONE (12:45)
--- NOTE | 2018-09-21 14:28 | CP.PCM.DIS ---
Provider - Provider Date of Admission: 09/19/18 23:25 Attending physician: Jocelyn Parsons MD Consults: 09/19/18 23:27 General Surgery Consult Routine Comment: cholcystitis Consulting Provider: Lee Tineo Consulting Physician: Lee Tineo Reason for Consult: cholecystitis Time Spent in preparation of Discharge (in minutes): 35 Diagnosis - Discharge Diagnosis (1) Cholelithiasis Status: Resolved (2) Iron deficiency anemia Status: Chronic (3) Menorrhagia Status: Chronic Hospital Course - Lab Results Lab Results: Micro Results 09/19/18 22:00 Blood Blood Culture - Preliminary NO GROWTH AFTER 24 HOURS 09/19/18 22:30 Blood Blood Culture - Preliminary NO GROWTH AFTER 24 HOURS Most Recent Lab Values WBC 11.1 K/uL (4.8-10.8) H 09/21/18 07:26 RBC 3.87 Mil/uL (3.80-5.20) 09/21/18 07:26 Hgb 9.5 g/dL (11.0-16.0) L 09/21/18 07:26 Hct 29.4 % (34.0-47.0) L 09/21/18 07:26 MCV 76.1 fL (81.0-99.0) L 09/21/18 07:26 MCH 24.6 pg (27.0-31.0) L 09/21/18 07:26 MCHC 32.3 g/dL (33.0-37.0) L 09/21/18 07:26 RDW 17.3 % (11.5-14.5) H 09/21/18 07:26 Plt Count 313 K/uL (130-400) 09/21/18 07:26 MPV 8.8 fL (7.2-11.7) 09/21/18 07:26 Neut % (Auto) 67.3 % (50.0-75.0) 09/21/18 07:26 Lymph % (Auto) 26.1 % (20.0-40.0) 09/21/18 07:26 [place] % (Auto) 5.1 % (0.0-10.0) 09/21/18 07:26 Eos % (Auto) 1.1 % (0.0-4.0) 09/21/18 07:26 Baso % (Auto) 0.4 % (0.0-2.0) 09/21/18 07:26 Neut # (Auto) 7.4 K/uL (1.8-7.0) H 09/21/18 07:26 Lymph # (Auto) 2.9 K/uL (1.0-4.3) 09/21/18 07:26 Refugio # (Auto) 0.6 K/uL (0.0-0.8) 09/21/18 07:26 Eos # (Auto) 0.1 K/uL (0.0-0.7) 09/21/18 07:26 Baso # (Auto) 0.0 K/uL (0.0-0.2) 09/21/18 07:26 Retic Count 1.6 % (0.5-1.5) H 09/20/18 08:14 PT 12.0 SECONDS (9.7-12.2) 09/20/18 08:14 INR 1.1 09/20/18 08:14 APTT 27.0 SECONDS (21-34) 09/20/18 08:14 Sodium 140 mmol/L (132-148) 09/21/18 07:26 Potassium 3.8 mmol/L (3.6-5.2) 09/21/18 07:26 Chloride 102 mmol/L (98-107) 09/21/18 07:26 Carbon Dioxide 27 mmol/L (22-30) 09/21/18 07:26 Anion Gap 15 (10-20) 09/21/18 07:26 BUN 6 mg/dL (7-17) L 09/21/18 07:26 Creatinine 0.6 mg/dL (0.7-1.2) L 09/21/18 07:26 Est GFR ( Amer) > 60 09/21/18 07:26 Est GFR (Non-Af Amer) > 60 09/21/18 07:26 Random Glucose 84 mg/dL (65-105) 09/21/18 07:26 Calcium 8.6 mg/dl (8.6-10.4) 09/21/18 07:26 Phosphorus 3.8 mg/dL (2.5-4.5) 09/21/18 07:26 Magnesium 1.9 mg/dL (1.6-2.3) 09/21/18 07:26 Iron 25 ug/dL (37-170) L 09/20/18 08:14 TIBC 460 ug/dL (250-450) H 09/20/18 08:14 % Saturation 5 (20-55) L 09/20/18 08:14 Ferritin 4.3 ng/mL 09/20/18 08:14 Total Bilirubin 0.5 mg/dL (0.2-1.3) 09/21/18 07:26 AST 84 U/L (14-36) H D 09/21/18 07:26 ALT 58 U/L (9-52) H D 09/21/18 07:26 Alkaline Phosphatase 72 U/L (38-126) 09/21/18 07:26 Troponin I < 0.0120 ng/mL (0.00-0.120) 09/19/18 20:15 NT-Pro-B Natriuret Pep 54.5 pg/mL (0-450) 09/19/18 20:15 Total Protein 6.9 g/dL (6.3-8.3) 09/21/18 07:26 Albumin 3.8 g/dL (3.5-5.0) 09/21/18 07:26 Globulin 3.1 gm/dL (2.2-3.9) 09/21/18 07:26 Albumin/Globulin Ratio 1.3 (1.0-2.1) 09/21/18 07:26 Lipase 94 U/L (23-300) 09/19/18 20:15 Urine Color Yellow (YELLOW) 09/20/18 06:41 Urine Clarity Clear (Clear) 09/20/18 06:41 Urine pH 6.0 (5.0-8.0) 09/20/18 06:41 Ur Specific E[place] 1.031 (1.003-1.030) H 09/20/18 06:41 Urine Protein Negative mg/dL (NEGATIVE) 09/20/18 06:41 Urine Glucose (UA) Normal mg/dL (Normal) 09/20/18 06:41 Urine Ketones Trace mg/dL (NEGATIVE) 09/20/18 06:41 Urine Blood Negative (NEGATIVE) 09/20/18 06:41 Urine Nitrate Negative (NEGATIVE) 09/20/18 06:41 Urine Bilirubin Negative (NEGATIVE) 09/20/18 06:41 Urine Urobilinogen Normal mg/dL (0.2-1.0) 09/20/18 06:41 Ur Leukocyte Esterase Neg Siri/uL (Negative) 09/20/18 06:41 Urine WBC (Auto) < 1 /hpf (0-5) 09/20/18 06:41 Urine RBC (Auto) < 1 /hpf (0-3) 09/20/18 06:41 Ur Squamous Epith Cells 1 /hpf (0-5) 09/20/18 06:41 Urine Bacteria Rare (<OCC) 09/19/18 20:15 Urine HCG, Qual Negative (NEGATIVE) 09/19/18 20:15 - Hospital Course Hospital Course: On admission: Patient is a 48 year old female with history of HLD who presents to ED today with complaints of abdominal pain. Patient reports left sided back pain since Tuesday, and today new onset left flank and LUQ abdominal pain, worse post- prandial. Patient reports similar symptoms 1 month ago which resolved after several hours, however today pain was only temporarily relieved with motrin and overall, more severe in intensity. Patient reports 3 episodes of vomiting, food particles while in ED. Denies fevers, chills, chest pain, SOB, diarrhea, constipation, hematochezia, dysuria, recent travel, sick contacts. No hx of EGD/colonoscopy or GI disease. Hospital course: Patient was admitted for evaluation of abdominal pain. On imaging, patient was noted to have gallstones. Patient was initially afebrile, however noted to have white count of 14.4 with left shift. Patient was treated with IV Zosyn and hydrated with IV fluids. Surgery Dr. Tineo consulted, who took patient for laparoscopic cholecystectomy which patient tolerated well. She was noted to have hematuria, however patient stated she is currently on her period, which is typically heavy. She was also found to have iron deficiency anemia and was treated with IV Ferrlecit. On discharge, patient was comfortable, with no abdominal pain, passing flatus, ambulatory. Imaging: CT abdomen/pelvis : large solitary 4.6 x 3.0 cm cholelith is seen in the gallbladder lumen. Mild gallbladder wall thickening. 4.7 x 5.3 cm left ovarian cyst. Abdominal US:1. Hepatomegaly with liver measuring up to 18.5 centimeters in length. 2. Cholelithiasis with prominent gallbladder calculus measuring up to 5.1 centimeters. Normal gallbladder wall thickness of 1.6 millimeters. No gross wall edema. Negative sonographic Schaeffer's sign. 3. Limited visualization of the pancreas. 4. Mild prominence of the common bile duct measuring up to 5.5 millimeters. Discharge instructions: Please follow up with [facility] to establish care. You will need to follow up for CBC to repeat your hemoglobin levels. Please take your Iron supplementation with Vitamin C. You will need to have a screening colonoscopy. Follow up at the clinic for referral to OBGYN for menorrhagia, since you are not on any oral contraceptives and you have an ovarian cyst on imaging. Please drink plenty of water, prune juice and high fiber diet to prevent constipation. Follow up with Dr. Tineo for post-operative care by calling [phone] to set up an appointment for Thursday 09/28. You may change your outer bandage as needed but use clean gauze pads. Do not remove steristrips (inner bandages) because they will fall off on their own. You may shower 2 days after removing your dressing. If wound becomes red or drains pus or if you develop fever, call Dr. Tineo's office immediately. Patient may return to work in 2 to [address], smoke or drink alcohol for the next 24 hours. Prescriptions Ferrous sulfate 325mg PO daily to be taken with Vitamin C Tramadol 50mg 1-2 pills every 6 hours as needed for pain. Discharge Exam - Head Exam Head Exam: ATRAUMATIC, NORMOCEPHALIC - Eye Exam Eye Exam: EOMI, PERRL - ENT Exam ENT Exam: Mucous Membranes Moist - Neck Exam Neck exam: Full Rom - Respiratory Exam Respiratory Exam: Clear to PA & Lateral, NORMAL BREATHING PATTERN. absent: Rales, Rhonchi, Wheezes, Respiratory Distress - Cardiovascular Exam Cardiovascular Exam: REGULAR RHYTHM, +S1, +S2. absent: Gallop, Rubs, Systolic Murmur - GI/Abdominal Exam GI & Abdominal Exam: Normal Bowel Sounds, Soft. absent: Tenderness Additional comments: Incision sites bandaged, clean, dry, intact. - Extremities Exam Extremities exam: pedal pulses present Additional comments: no calf tenderness, no pedal edema. - Back Exam Back exam: absent: CVA tenderness (L), CVA tenderness (R) - Neurological Exam Neurological exam: Alert, CN II-XII Intact, Oriented x3 - Psychiatric Exam Psychiatric exam: Normal Affect, Normal Mood - Skin Skin Exam: Dry, Intact, Warm Discharge Plan - Discharge Medications Prescriptions: Ascorbic Acid [Vitamin C 250 mg Tab] 250 mg PO DAILY 30 Days #30 tab Ferrous Sulfate 325 mg PO DAILY 30 Days #30 tablet - Follow Up Plan Condition: GOOD Disposition: HOME/ ROUTINE Instructions: High Fiber Diet, Cholecystectomy (DC), Gallstones (DC), Ascorbic Acid, Ferrous Sulfate, Tramadol Additional Instructions: Please follow up with [facility] to establish care. You will need to follow up for CBC to repeat your hemoglobin levels. Please take your Iron supplementation with Vitamin C. You will need to have a screening colonoscopy. Follow up at the clinic for referral to OBGYN for menorrhagia, since you are not on any oral contraceptives and you have an ovarian cyst on imaging. Please drink plenty of water, prune juice and high fiber diet to prevent constipation. Follow up with Dr. Tineo for post-operative care by calling [phone] to set up an appointment for Thursday 09/28. You may change your outer bandage as needed but use clean gauze pads. Do not remove steristrips (inner bandages) because they will fall off on their own. You may shower 2 days after removing your dressing. If wound becomes red or drains pus or if you develop fever, call Dr. Tineo's office immediately. Patient may return to work in 2 to [address], smoke or drink alcohol for the next 24 hours. Prescriptions Ferrous sulfate 325mg PO daily to be taken with Vitamin C Tramadol 50mg 1-2 pills every 6 hours as needed for pain. Referrals: Clinic,Med Surg [Non-Staff] - Lee Tineo MD [Staff Provider] -
== END 2018-09-21 14:38 | disposition home or self-care (01) ==
LOC: C.ER 17:22 → C.9E 23:25 → C.3T 23:45
PROVIDERS: ADMIT Emergency Medicine; ATTEND Emergency Medicine
DX: K80.12 Calculus of gallbladder with acute and chronic cholecystitis without obstruction (principal); D50.9 Iron deficiency anemia, unspecified; N92.0 Excessive and frequent menstruation with regular cycle
CPT/HCPCS: 36415; 47562; 71046; 74022; 74177; 76705; 76770; 80053; 81001; 82728; 83540; 83550; 83690; 83735; 83880; 84100; 84484; 84703; 85025; 85044; 85610; 85730; 87040; 88304; 96361; 96365; 96366; 96367; 96375; 96376; 99284; C1713; G0378; J1170; J1885; J2250; J2405; J2543; J2704; J2765; J2916; J3010; J7030; J7040; J7120; Q9967